=== PATIENT | female | born 1980 | race Caucasian/White ===

== ENCOUNTER 2017-01-03 23:53 | Emergency (ER) | payer OTHER ==
[~2017-01-03] VITALS: Ht 160 cm; Wt 86.0 kg
[~2017-01-03 23:53] MED LIST: PREN-29 PO
[2017-01-03 23:56] VITALS: Ht 160 cm; Wt 86.0 kg
[2017-01-04] MEDS ORDERED: ONDANSETRON 4 MG INJ IV STA (01:15)
[2017-01-04] MEDS ORDERED: SOD CHLORIDE 0.9% 1,000 ML IV STA (01:15)
[2017-01-04] MEDS ORDERED: morphine 4 MG/ML VIAL IV STA (01:15)
--- NOTE | 2017-01-04 01:37 | ERD ---
ER Documentation Chief Complaint Date/Time DATE: 01/04/17 TIME: 01:31 Chief Complaint abdominal pain x 1 hour HPI 36-year-old female presents here in the emergency department for complaints of epigastric pain right upper quadrant abdominal pain started one hour prior to arrival. Patient was in a green party, was eating a lot of food, upon coming home, she started to have the abdominal pain and vomiting. Patient described the pain as sharp pain, 6/10 scale, comminuted with vomiting. After vomiting, she felt much better. Patient denies any fever or chills. Patient denies any diarrhea or constipation. Patient denies any flank pain. Patient denies hematuria or dysuria. Patient did not take any medications to help with symptoms. ROS All systems reviewed and are negative except as per history of present illness. Medications Home Meds Reported Medications Vit-Fe Fumarate-FA* (Joe Tablet*) 1 Tab Tablet, 1 TAB PO DAILY, TAB 03/05/15 Allergies Allergies: Coded Allergies: No Known Allergy (Unverified , 01/03/17) PMhx/Soc Medical and Surgical Hx: pt denies Medical Hx, pt denies Surgical Hx History of Surgery: No Anesthesia Reaction: No Hx Neurological Disorder: No Hx Respiratory Disorders: No Hx Cardiac Disorders: No Hx Psychiatric Problems: No Hx Miscellaneous Medical Probl: No Hx Alcohol Use: No Hx Substance Use: No Hx Tobacco Use: No Smoking Status: Never smoker FmHx Family History: No coronary disease, No diabetes, No other Physical Exam Vitals Vital Signs Date Time Temp Pulse Resp B/P Pulse Ox O2 Delivery O2 Flow Rate FiO2 01/03/17 23:56 97.8 66 20 108/51 100 Physical Exam GENERAL: The patient is well developed and appropriate for usual state of health, in no apparent distress. CHEST: Clear to auscultation bilaterally. There are no rales, wheezes or rhonchi. HEART: Regular rate and rhythm. No murmurs, clicks, rubs or gallops. No S3 or S4. ABDOMEN: Soft, nontender and nondistended. Good bowel sounds. No rebound or guarding. No gross peritonitis. No gross organomegaly or masses. No George sign or McBurney point tenderness. BACK: No midline or flank tenderness. EXTREMITIES: Equal pulses bilaterally. There is no peripheral clubbing, cyanosis or edema. No focal swelling or erythema. Full range of motion. Grossly neurovascularly intact. NEURO: Alert and oriented. Cranial nerves 2-12 intact. Motor strength in all 4 extremities with 5/5 strength. Sensation grossly intact. Normal speech and gait. SKIN: There is no apparent rash or petechia. The skin is warm and dry. HEMATOLOGIC AND LYMPHATIC: There is no evidence of excessive bruising or lymphedema. No gross cervical, axillary, or inguinal lymphadenopathy. Result Diagram: 01/04/17 0145 01/04/17 0145 Results 24 hrs Laboratory Tests Test 01/04/17 01:30 01/04/17 01:45 Urine Color LT. YELLOW Urine Clarity SLIGHTLY CLOUDY Urine pH 6.5 Urine Specific [place] 1.020 Urine Ketones NEGATIVE Urine Nitrite NEGATIVE Urine Bilirubin NEGATIVE Urine Urobilinogen 4.0 E.U./dL Urine Leukocyte Esterase 1+ Urine Microscopic RBC 0-2/HPF Urine Microscopic WBC 2-5/HPF Urine Squamous Epithelial Cells FEW Urine Bacteria OCCASIONAL Urine Hemoglobin TRACE Urine Glucose NEGATIVE% Urine Total Protein NEGATIVE White Blood Count 12.010^3/ul Red Blood Count 4.9310^6/ul Hemoglobin 13.3g/dl Hematocrit 39.9% Mean Corpuscular Volume 80.9fl Mean Corpuscular Hemoglobin 27.0pg Mean Corpuscular Hemoglobin Concent 33.3g/dl Red Cell Distribution Width 12.8% Platelet Count 23074^3/UL Mean Platelet Volume 10.2fl Neutrophils % 77.3% Lymphocytes % 16.1% Monocytes % 5.6% Eosinophils % 0.7% Basophils % 0.1% Nucleated Red Blood Cells % 0.0/100WBC Neutrophils # 9.310^3/ul Lymphocytes # 1.910^3/ul Monocytes # 0.710^3/ul Eosinophils # 0.110^3/ul Basophils # 0.010^3/ul Nucleated Red Blood Cells # 0.010^3/ul Sodium Level 138mmol/L Potassium Level 3.9mmol/L Chloride Level 105mmol/L Carbon Dioxide Level 25mmol/L Anion Gap 12 Blood Urea Nitrogen 13mg/dl Creatinine 0.68mg/dl Glucose Level 101mg/dl Calcium Level 9.5mg/dl Total Bilirubin 0.5mg/dl Direct Bilirubin 0.00mg/dl Indirect Bilirubin 0.5mg/dl Aspartate Amino Transf (AST/SGOT) 101IU/L Alanine Aminotransferase (ALT/SGPT) 37IU/L Alkaline Phosphatase 106IU/L Total Protein 8.4g/dl Albumin 4.5g/dl Globulin 3.90g/dl Albumin/Globulin Ratio 1.15 Lipase 140U/L Beta HCG, Quantitative 95642.0mIU/ml Current Medications Medications (Trade) Dose Ordered Sig/Ivone Route PRN Reason Start Time Stop Time Status Last Admin Dose Admin Sodium Chloride (NS) 1,000 ml @ 1,000 mls/hr Q1H STAT IV 01/04/17 01:15 01/04/17 02:14 DC 01/04/17 01:59 Morphine Sulfate (morphine) 4 mg ONCE STAT IV 01/04/17 01:15 01/04/17 02:06 DC 01/04/17 01:58 Ondansetron HCl (Zofran Inj) 4 mg ONCE STAT IV 01/04/17 01:15 01/04/17 01:16 DC 01/04/17 01:57 Acetaminophen (Tylenol Tab) 500 mg ONCE STAT PO 01/04/17 01:42 01/04/17 01:43 DC 01/04/17 01:57 Patient was given medication for pain here in emergency department, after treatment, patient verbalized feeling much better. Patient's pain is improved.Patient was given Zofran here in the emergency department. After treatment, patient was able to tolerate po fluids here in the emergency department without any vomiting. There is no signs and symptoms of dehydration. Normal saline IV bolus was given here in emergency department for rehydration, patient tolerated IV fluids. PROCEDURE: US abdomen limited right upper quadrant. CLINICAL INDICATION: Abdominal pain TECHNIQUE: Multiple real-time images were acquired of the patient's right upper quadrant of the abdomen utilizing a high resolution transducer. COMPARISON: None FINDINGS: No gallstones are identified within the gallbladder. There is no pericholecystic fluid or gallbladder wall thickening. The common bile duct measures 3.4 mm in maximal dimension. No free fluid is identified. No abnormality is seen in the pancreas or liver. The right kidney measures 10.7 cm in length and is unremarkable. IMPRESSION: Unremarkable right upper quadrant abdominal ultrasound. RPTAT: HJES .Gino Steele MD, MD Date Time Electronically viewed and signed by .Gino Steele MD, MD on 01/04/2017 03:22 .S/ CC: [facility] [employer] [employer] PROCEDURE: US OB. CLINICAL INDICATION: Abdominal pain. Clinical estimate gestational age 14 weeks 3 days with estimated date of delivery 07/02/2017. TECHNIQUE: Transabdominal and transvaginal views of the pelvis are available for review. COMPARISON: No prior studies are available for comparison. FINDINGS: [place]-rump length: 1.48 cm, 7 weeks 6 days gestational age Mean gestational sac diameter: 2.65 cm, 7 weeks 4 days gestational age. heart rate: No embryonic heart activity seen. Ultrasound estimated gestational age: 7 weeks 5 days Neither ovary seen. No adnexal mass is seen. There is no free fluid. IMPRESSION: Nonviable intrauterine . Discussed with Nurse Practitioner Adela at 03:25 a.m. on 01/04/2017. RPTAT: HJES .Gino Steele MD, MD Date Time Electronically viewed and signed by .Gino Steele MD, MD on 01/04/2017 03:29 .S/ CC: [employer]SULTANT Procedures/[facility] Medical Decision Making: Patient's abdominal pain nonspecific at this time, most likely gastritis. Patient also had an incidental finding of a intrauterine but it is not viable, no heart tone, patient's beta hCG quantitative is low for weeks of . There is low suspicion for abdominal emergencies at this time. Patients abdominal exam is normal at this time. Patients radiology exam does not show any abdominal emergencies at this time. There is low suspicion for appendicitis, cholecystitis, abdominal aortic aneurysms or peritonitis at this time. There is low suspicion for sepsis. Patient appears well and is hemodynamically stable. Pt also has UTI, will be treated, no s/s of pyelonephritis. Disposition: Home. Condition: Stable Prescription Pepcid, Tylenol, Zofran, Keflex Instructions: Patient is advised to take medications as prescribed. Patient is advised to rest, increase fluid intake and do brat diet for next 1-2 days and progress as tolerated. Patient is advised that if symptoms are worse, severe abdominal pain, uncontrolled vomiting, high fever, severe flank pain, worst signs and symptoms, to return to the emergency department immediately. Otherwise, patient can follow up with OB doctor or here in emergency Department in 2 days for recheck of beta hCG quantitative likely level and ultrasound. Departure Diagnosis: Primary Impression: Abdominal pain Abdominal location: epigastric Qualified Code: R10.13 - Epigastric pain Additional Impressions: Threatened UTI (urinary tract infection) Urinary tract infection type: acute cystitis Hematuria presence: without hematuria Qualified Code: N30.00 - Acute cystitis without hematuria Condition: Stable Patient Instructions: Abdominal Pain, Possible Miscarriage (Threatened ) Additional Instructions: Patient is advised to take medications as prescribed. Patient is advised to rest, increase fluid intake and do brat diet for next 1-2 days and progress as tolerated. Patient is advised that if symptoms are worse, severe abdominal pain , uncontrolled vomiting, high fever, severe flank pain, worst signs and symptoms , to return to the emergency department immediately. Otherwise, patient can follow up with OB doctor or here in emergency Department in 2 days for recheck of beta hCG quantitative likely level and ultrasound. SEVEN RIVAS NP January 04, 2017 01:37
[2017-01-04] MEDS ORDERED: ACETAMINOPHEN 500 MG TAB PO STA (01:42)
[2017-01-04 01:57] LABS: ADD SCAN DIFF NO
[2017-01-04 02:04] LABS: BASOPHILS % 0.1 % (0.0-2.0); EOSINOPHILS # 0.1 10^3/ul (0.0-0.5); EOSINOPHILS % 0.7 % (0.0-7.0); HEMATOCRIT 39.9 % (37.0-47.0); HEMOGLOBIN 13.3 g/dl (12.0-16.0); LYMPHOCYTES # 1.9 10^3/ul (0.8-2.9); LYMPHOCYTES % 16.1 % (15.0-51.0); MEAN CORPUSCULAR HGB CONC 33.3 g/dl (32.0-37.0); MEAN CORPUSCULAR VOLUME 80.9 fl (82.0-101.0); MEAN PLATELET VOLUME 10.2 fl (7.4-10.4); MONOCYTE # 0.7 10^3/ul (0.3-0.9); MONOCYTES % 5.6 % (0.0-11.0); NEUTROPHIL # 9.3 10^3/ul (1.6-7.5); NEUTROPHILS % 77.3 % (39.0-77.0); PLATELET COUNT 288 10^3/UL (140-415); RED BLOOD COUNT 4.93 10^6/ul (4.20-5.40); RED CELL DISTRIBUTION WIDTH 12.8 % (11.5-14.5)
[2017-01-04 02:23] LABS: ADD UMIC YES; URINE BILIRUBIN (Dip) NEGATIVE (NEGATIVE); URINE BLOOD (Dip) TRACE (NEGATIVE); URINE COLOR LT. YELLOW (YELLOW); URINE GLUCOSE (Dip) NEGATIVE (NEGATIVE); URINE KETONES (Dip) NEGATIVE (NEGATIVE); URINE LEUKOCYTE ESTERASE (Dip) 1+ (NEGATIVE); URINE NITRITE (Dip) NEGATIVE (NEGATIVE); URINE TOTAL PROTEIN (Dip) NEGATIVE (NEGATIVE); URINE UROBILINOGEN (Dip) 4.0 E.U./dL (0.1-1.0)
[2017-01-04 02:25] LABS: ALBUMIN 4.5 g/dl (3.3-4.9); ALBUMIN/GLOBULIN RATIO 1.15; BILIRUBIN,INDIRECT 0.5 mg/dl (0-1.1); BILIRUBIN,TOTAL 0.5 mg/dl (0.2-1.3); CALCIUM 9.5 mg/dl (8.4-10.2); CREATININE 0.68 mg/dl (0.44-1.00); POTASSIUM 3.9 mmol/L (3.5-5.1); TOTAL PROTEIN 8.4 g/dl (6.1-8.1)
[2017-01-04 03:13] LABS: SQUAMOUS EPITHELIAL CELL,UR FEW; URINE RBCS 0-2 /HPF (0)
[2017-01-04 03:14] LABS: BACTERIA,URINE OCCASIONAL
--- NOTE | 2017-01-04 03:23 | RADRPT ---
PROCEDURE: US abdomen limited right upper quadrant. CLINICAL INDICATION: Abdominal pain TECHNIQUE: Multiple real-time images were acquired of the patient's right [facility] utilizing a high resolution transducer. COMPARISON: None FINDINGS: No gallstones are identified within the gallbladder. There is no pericholecystic fluid or gallbladder wall thickening. The common bile duct measures 3.4 mm in maximal dimension. No free fluid is identified. No abnormality is seen in the pancreas or liver. The right kidney measu res 10.7 cm in length and is unremarkable. IMPRESSION: Unremarkable right upper quadrant abdominal ultrasound. RPTAT: HJES .Gino Steele MD, MD Date Time Electronically viewed and signed by .Gino Steele MD, on 01/04/2017 03:22 .S/
--- NOTE | 2017-01-04 03:29 | RADRPT ---
PROCEDURE: US OB. CLINICAL INDICATION: Abdominal pain. Clinical estimate gestational age 14 weeks 3 days with alexander mated date of delivery 07/02/2017. TECHNIQUE: Transabdominal and transvaginal views of the pelvis are available for review. COMPARISON: No prior studies are available for comparison. FINDINGS: [place]-rump length: 1.48 cm, 7 weeks 6 days gestational age Mean gestational sac diameter: 2.65 cm, 7 weeks 4 days gestational age. heart rate:No embryonic heart activity seen. Ultrasound estimated gestational age:7 weeks 5 days Neither ovary seen. No adnexal mass is seen. There is no free fluid. IMPRESSION: Nonviable intrauterine . Discussed with Nurse Practitioner Adela at 03:25 a.m. on 017. RPTAT: HJES .Gino Steele MD, Date Time Electronically viewed and signed by .Gino Steele MD, on 01/04/2017 03:29 .S/
[2017-01-04] MEDS ORDERED: CEPH-443 PO (03:53)
[2017-01-04] MEDS ORDERED: ONDA4TAB14 PO (03:53)
[2017-01-04] MEDS ORDERED: ACET500C5 PO (03:53)
[2017-01-04 04:00] VITALS: BP 123/65; PULSE 71; RESP 18; TEMP 98.2
== END 2017-01-04 04:05 | disposition home or self-care (01) ==
LOC: FTE 23:53
DX: O26.891 Other specified pregnancy related conditions, first trimester (principal); R10.13 Epigastric pain; O20.0 Threatened abortion; O23.41 Unspecified infection of urinary tract in pregnancy, first trimester; O21.9 Vomiting of pregnancy, unspecified; Z3A.01 Less than 8 weeks gestation of pregnancy
CPT/HCPCS: 76705; 76801; 76817; 80053; 81001; 83690; 84702; 85025; 86900; 86901; J2270; J2405; J7030; Z7610; 36415; 81003; 96374; 96375

== ENCOUNTER 2017-01-15 10:40 | Day surgery (SDC) | payer OTHER ==
[~2017-01-15] VITALS: Ht 160 cm; Wt 85.6 kg
[2017-01-15] VITALS (11 sets, daily range): BP systolic 92–121; BP diastolic 44–58; PULSE 48–62; RESP 14–21; Ht 160 cm; Wt 85.6 kg
[~2017-01-15 10:40] MED LIST changes: +ACET500C5 PO; +CEPH-443 PO; +ONDA4TAB14 PO
[2017-01-15 12:03] LABS: ADD SCAN DIFF NO
[2017-01-15 12:09] LABS: BASOPHILS % 0.1 % (0.0-2.0); EOSINOPHILS # 0.2 10^3/ul (0.0-0.5); EOSINOPHILS % 2.5 % (0.0-7.0); HEMATOCRIT 36.8 % (37.0-47.0); HEMOGLOBIN 12.2 g/dl (12.0-16.0); LYMPHOCYTES # 2.3 10^3/ul (0.8-2.9); LYMPHOCYTES % 30.1 % (15.0-51.0); MEAN CORPUSCULAR HEMOGLOBIN 26.9 pg (29.0-33.0); MEAN CORPUSCULAR HGB CONC 33.2 g/dl (32.0-37.0); MEAN CORPUSCULAR VOLUME 81.1 fl (82.0-101.0); MEAN PLATELET VOLUME 9.8 fl (7.4-10.4); MONOCYTE # 0.4 10^3/ul (0.3-0.9); MONOCYTES % 5.8 % (0.0-11.0); NEUTROPHIL # 4.6 10^3/ul (1.6-7.5); NEUTROPHILS % 61.4 % (39.0-77.0); PLATELET COUNT 222 10^3/UL (140-415); RED BLOOD COUNT 4.54 10^6/ul (4.20-5.40); RED CELL DISTRIBUTION WIDTH 12.8 % (11.5-14.5); WHITE BLOOD COUNT 7.6 10^3/ul (4.8-10.8)
[2017-01-15 12:10] LABS: ADD UMIC YES; URINE BILIRUBIN (Dip) NEGATIVE (NEGATIVE); URINE BLOOD (Dip) 2+ (NEGATIVE); URINE COLOR LT. YELLOW (YELLOW); URINE GLUCOSE (Dip) NEGATIVE (NEGATIVE); URINE KETONES (Dip) NEGATIVE (NEGATIVE); URINE LEUKOCYTE ESTERASE (Dip) 1+ (NEGATIVE); URINE NITRITE (Dip) NEGATIVE (NEGATIVE); URINE TOTAL PROTEIN (Dip) NEGATIVE (NEGATIVE); URINE UROBILINOGEN (Dip) 1.0 E.U./dL (0.1-1.0)
[2017-01-15 12:25] LABS: ALBUMIN 3.6 g/dl (3.3-4.9)
[2017-01-15 12:26] LABS: INR 1.02; PROTIME 13.4 Sec (12.2-14.2)
[2017-01-15 12:27] LABS: PARTIAL THROMBOPLASTIN TIME 28.1 Sec (25.0-35.0)
[2017-01-15 12:28] LABS: ALBUMIN/GLOBULIN RATIO 1.05; BILIRUBIN,INDIRECT 0.4 mg/dl (0-1.1); BILIRUBIN,TOTAL 0.4 mg/dl (0.2-1.3)
[2017-01-15 12:29] LABS: CALCIUM 8.5 mg/dl (8.4-10.2); CREATININE 0.55 mg/dl (0.44-1.00); POTASSIUM 3.3 mmol/L (3.5-5.1)
[2017-01-15 12:37] LABS: BACTERIA,URINE MODERATE; SQUAMOUS EPITHELIAL CELL,UR FEW
[2017-01-15] MEDS ORDERED: PROCHLORPERAZINE 10 MG INJ IV PRN (13:00)
[2017-01-15] MEDS ORDERED: HYDROmorphONE (0.2 MG/ML) 10ML SYG IV PRN ×2 (13:00)
[2017-01-15] MEDS ORDERED: MEPERIDINE 25 MG INJ IV PRN (13:00)
[2017-01-15] MEDS ORDERED: LORAZEPAM 2 MG INJ IV PRN (13:00)
[2017-01-15] MEDS ORDERED: DIPHENHYDRAMINE 50 MG INJ IV PRN (13:00)
[2017-01-15] MEDS ORDERED: PROPOFOL 20 ML ONE (13:01)
[2017-01-15] MEDS ORDERED: LIDOCAINE 1% (MDV) 20 ML INJ ONE (13:02)
[2017-01-15] MEDS ORDERED: MIDAZOLAM 1 MG/ML 2 ML INJ ONE (13:02)
[2017-01-15] MEDS ORDERED: FAMOTIDINE 20 MG INJ ONE (13:11)
[2017-01-15] MEDS ORDERED: DEXAMETHASONE 4 MG/ML 1 ML INJ ONE (13:11)
[2017-01-15] MEDS ORDERED: ONDANSETRON 4 MG INJ ONE (13:11)
[2017-01-15] MEDS ORDERED: OXYTOCIN 10 UNIT INJ ONE (13:14)
[2017-01-15] MEDS ORDERED: VASOPRESSIN 20 UNITS INJ ONE (13:14)
--- NOTE | 2017-01-15 13:27 | PDOCDIS ---
Discharge Instructions CONDITION Patient Condition: Good HOME CARE INSTRUCTIONS: Diet Instructions: Regular ACTIVITY: Activity Restrictions: No Sexual Activity Bathing Restrictions: Shower FOLLOW UP/APPOINTMENTS Appointments appointment office in one week SALINA AGUILLON MD January 15, 2017 13:27
[2017-01-15] MEDS ORDERED: IBUPROFEN 600 MG TAB PO PRN (13:30)
[2017-01-15] MEDS ORDERED: KETOROLAC 30 MG INJ IV PRN (13:30)
--- NOTE | 2017-01-15 13:56 | OPR ---
DATE OF OPERATION: 01/15/2017 PREOPERATIVE DIAGNOSES: Missed . POSTOPERATIVE DIAGNOSIS: Missed . OPERATION PERFORMED: Dilatation and suction curettage. SURGEON: Salina Hatfield MD ANESTHESIA: General. ANESTHESIOLOGIST: Dr. Layne ESTIMATED BLOOD LOSS: 50 mL. DETAILS OF THE PROCEDURE: Under satisfactory general anesthesia, the patient was prepped and draped and placed in the dorsal lithotomy position. Bimanual pelvic examination, normal marital introitus, a rather relaxed outlet, normal vagina, cervix multiparous. Uterus 8 weeks' size. Adnexa not palpable. A weighted speculum introduced into the vagina. Anterior cervical lip grasped by Lui tenaculum. Uterine cavity sounded, measured 9 cm. Cervical dilatation further advanced with the Dario dilator. Vacurette #10 was used for suction curettage, which was followed with the small size _shar curetting. the specimen was submitted to pathology. The patient received 30 units of Pitocin during the procedure. At the end of the procedure the uterus was massaged. There was no bleeding. Patient was transferred to the recovery room in good condition. Dictated By: SALINA OCONNOR/RUBIO Conf#: [id number] DID#: [id number]
== END 2017-01-15 15:25 | disposition home or self-care (01) ==
LOC: SDS 10:40
PROVIDERS: ATTEND Obstetrics & Gynecology
DX: O02.1 Missed abortion (principal)
CPT/HCPCS: 59820; 80053; 81001; 85025; 85610; 85730; 86850; 86900; 86901; 88305; J1100; J1885; J2175; J2250; J2405; J2590; Z7512; Z7610; 81003

== ENCOUNTER 2017-05-06 10:43 | Emergency (ER) | payer OTHER ==
[~2017-05-06] VITALS: Ht 160 cm; Wt 86.0 kg
[2017-05-06 10:44] VITALS: Ht 160 cm; Wt 86.0 kg
[2017-05-06] MEDS ORDERED: HYDROCODONE/APAP (5/325) TAB PO ONE (11:00)
[2017-05-06] MEDS ORDERED: LIDOCAINE 1% (MDV) 20 ML INJ SC ONE (11:00)
[2017-05-06] MEDS ORDERED: NAPR-688 PO (12:36)
[2017-05-06] MEDS ORDERED: HYDR-906 PO (12:36)
[2017-05-06] MEDS ORDERED: CEPH-443 PO (12:36)
--- NOTE | 2017-05-06 12:58 | ERD ---
ER Documentation Chief Complaint Date/Time DATE: 05/06/17 TIME: 12:40 Chief Complaint right thumb lac HPI 36-year-old female presents with a laceration to her right thumb that she sustained using a food service aide. Is on the tip of her finger and it was bleeding. She has no other injuries. ROS All systems reviewed and are negative except as per history of present illness. Medications Home Meds Active Scripts Hydrocodone/Acetaminophen ([place] 5-325 Tablet) 1 Each Tablet, 1 EACH PO Q6, #14 TAB Prov:HUNTER HOROWITZ DO 05/06/17 Naproxen* (Naproxen*) 500 Mg Tablet, 500 MG PO BID Y for PAIN, #14 TAB Prov:HUNTER HOROWITZ DO 05/06/17 Cephalexin* (Keflex*) 500 Mg Capsule, 500 MG PO QID for 5 Days, CAP Prov:HUNTER HOROWITZ DO 05/06/17 Allergies Allergies: Coded Allergies: No Known Allergy (Unverified , 01/15/17) PMhx/Soc History of Surgery: Yes (D+C) Anesthesia Reaction: No Hx Neurological Disorder: No Hx Respiratory Disorders: No Hx Cardiac Disorders: No Hx Psychiatric Problems: No Hx Miscellaneous Medical Probl: No Hx Alcohol Use: No Hx Substance Use: No Hx Tobacco Use: No Smoking Status: Never smoker Physical Exam Vitals Vital Signs Date Time Temp Pulse Resp B/P Pulse Ox O2 Delivery O2 Flow Rate FiO2 05/06/17 10:44 98.1 60 20 108/51 99 Physical Exam Const: [] Mild distress, appears worried Head: Atraumatic Skin: No petechiae or rashes Back: No midline or flank tenderness Ext: Laceration to lateral tip of right thumb approximately 3 cm which does include a small piece of the fingernail and is missing approximately 0.8 mm of skin on the distal part of the laceration that extends for about 1 cm of the laceration. Laceration is quite lateral and is no bony involvement. There is active oozing and dripping of blood. Capillary refill is intact. No other hand injuries. No bony tenderness Neur: Awake and alert Psych: Mild anxiety Results 24 hrs Current Medications Medications (Trade) Dose Ordered Sig/Ivone Route PRN Reason Start Time Stop Time Status Last Admin Dose Admin Lidocaine (Xylocaine 1% (Mdv) 20 ml) 20 ml ONCE ONCE SC 05/06/17 11:00 05/06/17 11:02 DC Acetaminophen/ Hydrocodone Bitart ([place] (5/325)) 1 tab ONCE ONCE PO 05/06/17 11:00 05/06/17 11:02 DC 05/06/17 11:23 Procedures/MDM Right thumb lacquer. Partially in ER.. In the ER by myself after digital block and irrigation with normal saline. Bacitracin was placed. Patient is going to be discharged [facility] and return to ER in 6 days for suture removal. I stated I would like to wound check in the next 3 days. Return precautions given Digital block note, right thumb: After cleaning with alcohol 2 cc of lidocaine with epinephrine were injected into the lateral base of each thumb just distal to the MCP joint. This led to complete anesthesia of the thumb and patient was not able to feel procedure performed at that site. No complications Laceration repair note, lateral right thumb distally: Irrigated with normal saline. 2 similar interrupted 5-0 silk sutures were placed in the proximal part of the laceration. Distal laceration was covered in bacitracin and wrapped well. It is not amenable to suturing as the skin was missing and the subcutaneous tissue would not allow the skin edges to come together. Patient tolerated procedure well with no complications. Departure Diagnosis: Primary Impression: Laceration of thumb, right Condition: Stable Patient Instructions: Laceration, Hand Referrals: [facility] Additional Instructions: Go to the hand clinic for a check in a few days. Return to ER in 6 days for suture removal. See the doctor sooner or return here if your condition worsens before your appointment time. HUNTER HOROWITZ DO May 06, 2017 12:50
== END 2017-05-06 13:30 | disposition home or self-care (01) ==
LOC: FTE 10:43
DX: S61.111A Laceration without foreign body of right thumb with damage to nail, initial encounter (principal); W26.8XXA Contact with other sharp object(s), not elsewhere classified, initial encounter; Y92.9 Unspecified place or not applicable
CPT/HCPCS: 12002; Z7502; Z7610

== ENCOUNTER 2017-08-04 14:08 | Emergency (ER) | payer OTHER ==
[~2017-08-04] VITALS: Ht 162.6 cm; Wt 84.0 kg
[~2017-08-04 14:08] MED LIST changes: -ACET500C5 PO; +HYDR-906 PO; +NAPR-688 PO; -ONDA4TAB14 PO; -PREN-29 PO
[2017-08-04 14:13] VITALS: Ht 162.6 cm; Wt 84.0 kg
[2017-08-04] MEDS ORDERED: ALBUTEROL 0.083% (NEB) 2.5 MG/3 ML AMP HHN STA (14:34)
[2017-08-04] MEDS ORDERED: ACETAMINOPHEN 325 MG TAB PO ONE (15:00)
[2017-08-04] MEDS ORDERED: predniSONE 20 MG TAB PO ONE (15:00)
[2017-08-04] MEDS ORDERED: PRED20TA PO (15:40)
[2017-08-04] MEDS ORDERED: AZIT250T94 PO (15:40)
[2017-08-04] MEDS ORDERED: ALBU8.5H3 INH (15:40)
--- NOTE | 2017-08-04 15:42 | ERD ---
ER Documentation Chief Complaint Chief Complaint fever , cough x 3 days HPI This 36-year-old female presents with fever and productive cough for last 3 days. She denies any history of asthma. She denies chest pain, vomiting, abdominal pain. ROS All systems reviewed and are negative except as per history of present illness. Medications Home Meds Active Scripts Albuterol Sulfate* (Proair HFA*) 8.5 Gm Hfa.aer.ad, 2 PUFF INH Q4, #1 INHALER Prov:BECCA PINZON MD 08/04/17 Prednisone* (Prednisone*) 20 Mg Tab, 40 MG PO DAILY for 4 Days, TAB Start August 05, 2017 Prov:BECCA PINZON MD 08/04/17 Azithromycin* (Zithromax*) 250 Mg Tablet, 250 MG PO .ZPACK DIRECTED, #6 TAB TAKE 500 MG (2 TABS) THE FIRST DAY THEN 250 MG (1 TAB) DAYS 2-5 Prov:BECCA PINZON MD 08/04/17 Hydrocodone/Acetaminophen ([place] 5-325 Tablet) 1 Each Tablet, 1 EACH PO Q6, #14 TAB Prov:HUNTER HOROWITZ DO 05/06/17 Naproxen* (Naproxen*) 500 Mg Tablet, 500 MG PO BID Y for PAIN, #14 TAB Prov:HUNTER HOROWITZ DO 05/06/17 Cephalexin* (Keflex*) 500 Mg Capsule, 500 MG PO QID for 5 Days, CAP Prov:HUNTER HOROWITZ DO 05/06/17 Allergies Allergies: Coded Allergies: No Known Allergy (Unverified , 01/15/17) PMhx/Soc History of Surgery: Yes (D+C) Anesthesia Reaction: No Hx Neurological Disorder: No Hx Respiratory Disorders: No Hx Cardiac Disorders: No Hx Psychiatric Problems: No Hx Miscellaneous Medical Probl: No Hx Alcohol Use: No Hx Substance Use: No Hx Tobacco Use: No Smoking Status: Never smoker Physical Exam Vitals Vital Signs Date Time Temp Pulse Resp B/P Pulse Ox O2 Delivery O2 Flow Rate FiO2 08/04/17 14:13 98.6 81 18 130/80 98 Physical Exam Const: [] Letter, [id number]. Head: Atraumatic Eyes: Normal Conjunctiva ENT: Normal External Ears, Nose and Mouth. TMs and oropharynx normal. Neck: Full range of motion..~ No meningismus. Resp: Clear to auscultation bilaterally. Rhonchi with forced wheeze without wheeze at rest and no rales or retractions appreciated. Cardio: Regular rate and rhythm, no murmurs Abd: Soft, non tender, non distended. Normal bowel sounds Skin: No petechiae or rashes Back: No midline or flank tenderness Ext: No cyanosis, or edema Neur: Awake and alert Psych: Normal Mood and Affect Results 24 hrs Current Medications Medications (Trade) Dose Ordered Sig/Ivone Route PRN Reason Start Time Stop Time Status Last Admin Dose Admin Prednisone (Prednisone) 40 mg ONCE ONCE PO 08/04/17 15:00 08/04/17 15:01 DC 08/04/17 14:43 Albuterol (Proventil 0.083% ([place]eb)) 5 mg ONCE STAT HHN 08/04/17 14:34 08/04/17 14:36 DC 08/04/17 14:34 Acetaminophen (Tylenol Tab) 650 mg ONCE ONCE PO 08/04/17 15:00 08/04/17 15:01 DC 08/04/17 14:43 Procedures/MDM Patient presents with URI symptoms and wheezing rhonchi without evidence of hypoxemia or respiratory distress. She is given albuterol treatment 1 and prednisone 40 mg of mouth. Patient had improved breath sounds on serial exam. Patient has no signs or symptoms to suggest PE, pneumonia, respiratory distress or abdominal pain. She will treated with Zithromax, prednisone, albuterol, primary care follow-up and return precautions. The patient was stable with no new complaints during the ER course. Clinically, there is no current evidence to suggest meningitis, sepsis, acute abdomen, pneumonia, acute coronary syndrome , pulmonary embolism, or any other emergent condition appearing to require further evaluation or hospitalization. The patient should certainly return for any new or worsening symptoms per the aftercare instructions. They should otherwise follow-up with her primary care doctor for reevaluation this week. Departure Diagnosis: Primary Impression: Cough Condition: Stable Patient Instructions: Bronchitis With Wheezing (Adult) Additional Instructions: Recheck for new or worsening symptoms or primary care doctor. BECCA PINZON MD Aug 04, 2017 15:42
[2017-08-04] MEDS ORDERED: IBUP-1542 PO (15:43)
[2017-08-04 15:54] VITALS: BP 126/70; PULSE 88; RESP 16; TEMP 97.9
== END 2017-08-04 16:06 | disposition home or self-care (01) ==
LOC: FTE 14:08
DX: R05 Cough (principal)
CPT/HCPCS: J7512; Z7502; Z7610; 94664

== ENCOUNTER 2018-02-20 12:32 | Emergency (ER) | END 2018-02-20 14:39 | disposition home or self-care (01) ==

== ENCOUNTER 2018-05-17 06:04 | Day surgery (SDC) | END 2018-05-17 11:49 | disposition home or self-care (01) ==